=== PATIENT | female | born 1965 | race Caucasian/White ===

== ENCOUNTER 2019-09-01 08:47 | Outpatient (CLI) | payer BC | END 2019-09-01 08:48 | disposition home or self-care (01) | LOC: CTENTCT 08:47 | PROVIDERS: ATTEND Specialist | DX: J32.9 Chronic sinusitis, unspecified (principal) | CPT/HCPCS: 70486 ==

== ENCOUNTER 2019-09-21 07:03 | Day surgery (SDC) | payer BC ==
[2019-09-20 10:21] VITALS: BMI 38.4
[2019-09-21] MEDS ORDERED: AFRIN NASAL MIST 15 ML BOT ONE ×2 (08:00→09:48)
[2019-09-21] MEDS ORDERED: Lidocaine 1% PF 5 ML VIAL ONE (09:22)
[2019-09-21] MEDS ORDERED: Dexamethasone 20 MG/5 ML VIAL ONE (09:22)
[2019-09-21] MEDS ORDERED: Ondansetron PF 4 MG/2 ML Vial ONE (09:22)
[2019-09-21] MEDS ORDERED: PROPOFOL 200 MG/20 ML VIAL ONE (09:22)
[2019-09-21] MEDS ORDERED: Glycopyrrolate 0.2 MG/ML 5 ML SYRINGE ONE (09:22)
[2019-09-21 09:31] LABS: BHCG - Serum Negative (NEGATIVE); Pregs Control Background? CLEAR/WHITE (CLR/WHITE); Pregs Control Bar Appear? YES (CONTROL BAR)
[2019-09-21] MEDS ORDERED: Scopolamine 1.5 mg/72 hour Patch ONE (09:43)
[2019-09-21] MEDS ORDERED: Lidocaine 1% w/Epinephrine 1:100K 20 ML VIAL ONE (09:47)
[2019-09-21] MEDS ORDERED: EPINEPHrine 1 MG/ML AMP ONE (09:47)
[2019-09-21] MEDS ORDERED: Bacitracin Zinc Ointment 30 gm TUBE ONE (09:47)
[2019-09-21] MEDS ORDERED: Midazolam HCl 2 mg/2 ml Vial ONE (10:00)
[2019-09-21] MEDS ORDERED: Fentanyl 100 MCG/2 ML VIAL ONE ×4 (10:00→11:48)
--- NOTE | 2019-09-21 12:02 | OP ---
DATE OF PROCEDURE: 09/21/2019 PREOPERATIVE DIAGNOSES: Chronic sinusitis, right james bullosa, nasal obstruction, profound septal deformity, hypertrophic inferior turbinates. POSTOPERATIVE DIAGNOSES: Chronic sinusitis, right james bullosa, nasal obstruction, profound septal deformity, hypertrophic inferior turbinates. PROCEDURES PERFORMED: 1. Septoplasty. 2. Bilateral nasal endoscopy with submucosal resection of inferior turbinates. 3. Bilateral nasal endoscopy with resection of right james bullosa. 4. Bilateral nasal endoscopy with total ethmoidectomy. 5. Bilateral nasal endoscopy with maxillary antrostomy. 6. Bilateral nasal endoscopy with frontal sinusotomy. PROCEDURE IN DETAIL: SEPTOPLASTY: After local anesthesia was infiltrated into the submucoperichondrial plane, a standard Fortescue incision was made with a #15 blade down to the level of the septal cartilage. The caudal elevator was used to elevate the mucoperichondrium from the underlying cartilage. We then proceeded beyond the bony cartilaginous junction and elevated the bony periosteum as well. Great attention was paid to the spur to prevent rent formation in the septal flap. A transcartilaginous incision was then made, while preserving an adequate dorsal and caudal cartilaginous strut for tip support. The deformed cartilage was removed and disarticulated from the bony cartilaginous junction and maxillary crest. This was placed in saline and would later be crushed and returned to the mucoperichondrial envelope. We then elevated the contralateral periosteum from the bony cartilaginous region and removed the deformed portions of the bone and bony spurs. The cartilage was then crushed and placed back into the mucoperichondrial envelope and the mucosa was re-approximated with a quilting stitch composed of rapidly absorbent gut suture. The Fortescue incision was also closed with interrupted gut suture. At the completion of the case, Powell splints were placed and suture secured to the caudal septum. BILATERAL NASAL ENDOSCOPY WITH SUBMUCOSAL RESECTION OF INFERIOR TURBINATES: After consent was obtained, the patient was identified, brought to the operating room, and placed on the operating room table in the supine position. Consent was obtained, notifying the patient of the possibility of additional infections, bleeding, brain injury, and eye/orbital injury. The patient was placed on the operating room table, and general endotracheal anesthesia and intravenous access was obtained. The patient was then positioned, prepped and draped for endoscopic sinus surgery. Nasal preparation included trimming nasal vestibular hairs and spraying in topical Afrin. We then placed Afrin topical solution on nasal pledgets and strategically located them intranasally. The perinasal mucosa was injected with 1% lidocaine with 1:100,000 epinephrine in the submucoperichondrial plane of the septum, lateral nasal wall, and anterior to the uncinate. The patient was then prepped and draped in a sterile fashion and positioned for endoscopic sinus surgery. With the 0-degree endoscope, the patient underwent systematic nasal endoscopy. There were no suspicious internasal masses or lesions identified. We then focused our attention to the osteomeatal complex region under the middle turbinate. The inferior turbinates were visualized with a 0 degree endoscope and outfractured with a Franky elevator. The inferior medial aspect was cauterized with the electrocautery. Hemostasis was obtained . After adequate airway was established, we turned our attention to the contralateral side and used a similar procedure. Again, a Franky elevator was used to outfracture inferior turbinates under endoscopic visualization. With a suction cautery, the free inferior medial aspect was cauterized under direct visualization along the length of the inferior turbinate. At this point, we then turned our attention to the contralateral side and proceeded with endoscopic sinus surgery. At the completion of the case, Rice keel splints were placed in the ethmoid cavities after the ethmoidectomy. There were no complications. The patient tolerated the procedure well and was discharged to the recovery room in stable condition prior to return to the preoperative day stay with ultimate discharge home. Prescriptions for pain medication and antibiotics were provided. The patient received intramuscular Depo-Medrol during the case. BILATERAL NASAL ENDOSCOPY WITH RESECTION OF RIGHT JAMES BULLOSA: The james bullosa was identified and entered with a sickle blade. The lateral aspect of the james bullosa was meticulously resected while leaving the medial most aspect to form the new middle turbinate. Attention was made not to violate the mucosa. The straight biting punches and micro-debrider were used to remove shrouds of mucosa and bony debris. BILATERAL NASAL ENDOSCOPY WITH TOTAL ETHMOIDECTOMY: The anterior face of the ethmoid bulla was entered and with the micro-debrider, dissection continued posteriorly to the ground lamella. The limits of dissection included the insertion of the middle turbinate, medial orbital wall, and base of skull. We similarly identified the frontal recess and removed shrouds of bone and debris in that region to obtain patency into the agger nasi region and frontal recess. We then entered the ground lamella and its anteroinferior aspect and proceeded posteriorly, opening the posterior ethmoid air-cell system. Again, the limits of dissection included the base of skull and medial orbital wall. BILATERAL NASAL ENDOSCOPY WITH MAXILLARY ANTROSTOMY: The uncinate was then identified and the extent of the uncinate was appreciated by out-fracturing the uncinate with the ball-tip probe. We then used the sickle blade to disarticulate the uncinate from the lateral nasal wall. This was then removed with straight biting and upbiting punches with the remaining shrouds of mucosa and bony septum removed with the micro-debrider. The natural os of the maxillary sinus was then identified and enlarged with the maxillary punches and back biting forceps. BILATERAL NASAL ENDOSCOPY WITH FRONTAL SINUSOTOMY: Following the ethmoidectomy, we then turned our attention to the frontal nasal recess. The agger nasi cells were addressed and the frontal recess was exposed. The natural opening to the frontal sinus was identified. At this point, any obstructing shrouds of mucosa and bony fragments were removed with a curved microdebrider. The wound was then examined and found to be free of any obstructing debris. We then turned our attention to the contralateral side and performed a similar procedure again under endoscopic visualization using a 45-degree scope. We were able to visualize the frontal recess. Obstructing shrouds of mucosa and bone were removed with a microdebrider. The natural os of frontal sinus was identified and enlarged and irrigated. At this point, the frontal sinusotomy was completed and we turned to the next area of concern. FINDINGS: The patient had profound septal deformity secondary to a very large right james bullosa. There was mucosal purulence encountered in the frontal sinus as well as the maxillary sinus bilaterally. The septum was profoundly deviated to the left with a large spur and the turbinates were accordingly enlarged. Job ID: [id number]
--- NOTE | 2019-09-25 00:05 | EKG ---
Test Reason : PREOP Blood Pressure : / mmHG Vent. Rate : 064 BPM Atrial Rate : 064 BPM P-R Int : 198 ms QRS Dur : 092 ms QT Int : 446 ms P-R-T Axes : 035 -17 011 degrees QTc Int : 460 ms Normal sinus rhythm Normal ECG When compared with ECG of 09-JAN-2016 08:12, Previous ECG has undetermined rhythm, needs review Confirmed by Heavenly MAO ([id number]) on 09/25/2019 12:05:16 AM Referred By: WALT Confirmed By:Heavenly MAO
== END 2019-09-21 13:49 | disposition home or self-care (01) ==
LOC: SDC 07:03
PROVIDERS: ATTEND Specialist
PROC: 099S8ZZ Drainage of Right Frontal Sinus, Via Natural or Artificial Opening Endoscopic (ICD-10-PCS; principal; 2019-09-21)
PROC: 09TV8ZZ Resection of Left Ethmoid Sinus, Via Natural or Artificial Opening Endoscopic (ICD-10-PCS; principal; 2019-09-21)
PROC: 099Q8ZZ Drainage of Right Maxillary Sinus, Via Natural or Artificial Opening Endoscopic (ICD-10-PCS; principal; 2019-09-21)
PROC: 09TU8ZZ Resection of Right Ethmoid Sinus, Via Natural or Artificial Opening Endoscopic (ICD-10-PCS; principal; 2019-09-21)
PROC: 09TL8ZZ Resection of Nasal Turbinate, Via Natural or Artificial Opening Endoscopic (ICD-10-PCS; principal; 2019-09-21)
PROC: 099R8ZZ Drainage of Left Maxillary Sinus, Via Natural or Artificial Opening Endoscopic (ICD-10-PCS; principal; 2019-09-21)
PROC: 09BM0ZZ Excision of Nasal Septum, Open Approach (ICD-10-PCS; principal; 2019-09-21)
PROC: 099T8ZZ Drainage of Left Frontal Sinus, Via Natural or Artificial Opening Endoscopic (ICD-10-PCS; principal; 2019-09-21)
DX: J32.9 Chronic sinusitis, unspecified (principal); J34.89 Other specified disorders of nose and nasal sinuses; J34.2 Deviated nasal septum; J34.3 Hypertrophy of nasal turbinates; J30.9 Allergic rhinitis, unspecified; G47.33 Obstructive sleep apnea (adult) (pediatric); K21.9 Gastro-esophageal reflux disease without esophagitis; G89.29 Other chronic pain; M54.5 Low back pain; I48.0 Paroxysmal atrial fibrillation; D50.9 Iron deficiency anemia, unspecified; Z87.891 Personal history of nicotine dependence; Z79.899 Other long term (current) drug therapy; Z88.8 Allergy status to other drugs, medicaments and biological substances
CPT/HCPCS: 36415; 84703; 85014; 93005; 93010; J0171; J1100; J2001; J2250; J2405; J2704; J3010

== ENCOUNTER 2021-04-11 10:04 | Day surgery (SDC) | payer BC ==
[2021-04-10 10:40] VITALS: BMI 44.3
[2021-04-11] MEDS ORDERED: Famotidine/PF 20 mg/2ml Vial ONE (10:49)
[2021-04-11] MEDS ORDERED: Scopolamine 1.5 mg/72 hour Patch ONE (10:49)
[2021-04-11] MEDS ORDERED: Fentanyl 100 MCG/2 ML VIAL ONE ×3 (12:24→13:49)
[2021-04-11] MEDS ORDERED: Lidocaine 1% w/Epinephrine 1:100K 20 ML VIAL ONE ×2 (12:26→12:27)
[2021-04-11] MEDS ORDERED: Bupivacaine 0.25% HCL 30 ML VIAL ONE ×2 (12:26→12:27)
[2021-04-11] MEDS ORDERED: Glycopyrrolate 0.2 MG/ML 5 ML SYRINGE ONE (12:43)
[2021-04-11] MEDS ORDERED: Rocuronium Bromide 10 MG/ML (10ML VIAL) ONE (12:43)
[2021-04-11] MEDS ORDERED: Lidocaine 1% PF 5 ML VIAL ONE (12:43)
[2021-04-11] MEDS ORDERED: Dexamethasone 20 MG/5 ML VIAL ONE (12:43)
[2021-04-11] MEDS ORDERED: Ondansetron PF 4 MG/2 ML Vial ONE (12:43)
[2021-04-11] MEDS ORDERED: Ketorolac Tromethamine 30 MG/ML VIAL ONE (12:43)
[2021-04-11] MEDS ORDERED: Succinylcholine 200 MG/10 ml SYRINGE FS ONE (12:43)
[2021-04-11] MEDS ORDERED: PROPOFOL 200 MG/20 ML VIAL ONE (12:43)
[2021-04-11] MEDS ORDERED: SUGAMMADEX SODIUM 200 MG/2 ML VIAL ONE (13:28)
[2021-04-11] MEDS ORDERED: Promethazine HCl 25 MG/ML VIAL ONE (14:18)
[2021-04-11] MEDS ORDERED: Ondansetron ODT 4 MG TAB ONE (15:48)
[2021-04-11] MEDS ORDERED: HYDROcodone/Acetaminophen 5/325 mg Tablet ONE (16:14)
[2021-04-11] MEDS ORDERED: Hydrocortisone 1% Cream 30 GM TUBE TOP SCH (17:00)
== END 2021-04-11 17:25 | disposition home or self-care (01) ==
LOC: SDC 10:04
PROVIDERS: ATTEND Surgery
PROC: 0FT44ZZ Resection of Gallbladder, Percutaneous Endoscopic Approach (ICD-10-PCS; principal; 2021-04-11)
DX: K81.1 Chronic cholecystitis (principal); K82.8 Other specified diseases of gallbladder; G47.33 Obstructive sleep apnea (adult) (pediatric); K21.9 Gastro-esophageal reflux disease without esophagitis; G89.29 Other chronic pain; M54.5 Low back pain; D50.9 Iron deficiency anemia, unspecified; I48.0 Paroxysmal atrial fibrillation; Z87.891 Personal history of nicotine dependence; Z79.82 Long term (current) use of aspirin; Z79.899 Other long term (current) drug therapy; Z88.8 Allergy status to other drugs, medicaments and biological substances; Z91.013 Allergy to seafood; Z98.84 Bariatric surgery status
CPT/HCPCS: 88304; 93005; 93010; J0690; J1100; J1885; J2405; J2550; J2704; J3010; Q0162; S0020; S0028

== ENCOUNTER 2022-02-24 09:16 | Outpatient (CLI) | payer BC | END 2022-02-24 09:17 | disposition home or self-care (01) | LOC: NM 09:16 | PROVIDERS: ATTEND Internal Medicine Gastroenterology | DX: K21.9 Gastro-esophageal reflux disease without esophagitis (principal); R11.0 Nausea; R94.8 Abnormal results of function studies of other organs and systems | CPT/HCPCS: 78264; A9541 ==